=== PATIENT | female | born 1985 | race Hispanic/Latino ===

== ENCOUNTER 2017-02-07 20:59 | Outpatient (CLI) | payer MEDICAID ==
[2017-02-07 22:14] VITALS: BP 134/77
== END 2017-02-07 22:47 | disposition home or self-care (01) ==
LOC: TRG 20:59
PROVIDERS: ATTEND Obstetrics & Gynecology
DX: Z34.93 Encounter for supervision of normal pregnancy, unspecified, third trimester (principal); Z87.891 Personal history of nicotine dependence; Z3A.39 39 weeks gestation of pregnancy
CPT/HCPCS: 59025

== ENCOUNTER 2017-02-19 12:58 | Inpatient (IN) | payer MEDICAID ==
[2017-02-19] MEDS ORDERED: MINERAL OIL PO PRN (13:53)
[2017-02-19] MEDS ORDERED: ZOFRAN IV PRN ×2 (13:53→20:23)
[2017-02-19] MEDS ORDERED: SUBLIMAZE IV PRN (13:53)
[2017-02-19] MEDS ORDERED: ePHEDrine SULFATE IV PRN ×2 (13:53→16:08)
[2017-02-19] MEDS ORDERED: LACTATED RINGERS 2,000 ML ONE (13:54)
[2017-02-19] MEDS ORDERED: POLYCILLIN/NS 2 GM/100 ML 2 GM/100 ML BAG IV ONE ×2 (13:54→15:00)
[2017-02-19] MEDS ORDERED: BRETHINE SUB-Q PRN (13:57)
[2017-02-19] MEDS ORDERED: BRETHINE IVP PRN (13:58)
--- NOTE | 2017-02-19 14:00 | History and Physical Report ---
History of Present Illness Date of examination: 02/19/17 Chief complaint: Painful contractions History of present illness: 31-year-old 021 at 40+ gestation presented in active labor, she is [facility] patient. course has been unremarkable per patient, she is GBS positive. 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 denies: smoking, alcohol abuse, prescription drug abuse, IV drug use - Obstetrical History Expected Date of Delivery: 02/14/17 Actual Gestation: 40 Week(s) 5 Day(s) : 4 Para: 1 ( 9 yrs ago. was ~ 9 lbs) Medications and Allergies Allergies Allergy/AdvReac Type Severity Reaction Status Date / Time No Known Allergies Allergy Verified 02/19/17 13:10 Home Medications Medication Instructions Recorded Confirmed Last Taken Type HYDROcodone/APAP 5-325 [[place] 1 each PO Q6HR PRN #20 tablet 02/19/17 Unknown Rx 5/325] Ibuprofen [Motrin 600 MG tab] 600 mg PO Q8H PRN #30 tablet 02/19/17 Unknown Rx Multivitamin with Iron 1 each PO DAILY #30 tablet 02/19/17 Unknown Rx [Multivitamins with Iron] Vit-Fe Fumar-FA [ 1 tab PO QDAY 02/19/17 02/19/17 02/18/17 12: 00 History Vitamin] 1 Review of Systems Constitutional: no fever, no chills, no chronic pain Eyes: no blurred vision, no photophobia Cardiovascular: no chest pain, no orthopnea, no rapid/irregular heart beat, no edema, no syncope, no lightheadedness, no high blood pressure Respiratory: no excessive sputum, no shortness of breath, no dyspnea on exertion Gastrointestinal: no nausea, no vomiting Genitourinary: contractions, no vaginal bleeding, no vaginal discharge, no leakage of fluid - Vital Signs Vital signs: Vital Signs Pulse BP 91 H 133/85 02/19/17 13:18 02/19/17 13:18 Temp Pulse Resp BP Pulse Ox 98.1 F 91 H 20 133/85 02/19/17 13:26 02/19/17 13:26 02/19/17 13:26 02/19/17 13:26 - Physical Exam Abdomen: Positive: normal appearance, soft. Negative: distention, tenderness, guarding, rigidity Genitourinary (Female): Positive: normal external genitalia Uterus: Positive: enlarged (EFW ~ 3600) Adnexa: both: normal Extremities: Positive: normal - Obstetrical FHR: category 1 Cervical Dilatation: 5.5 (Per RN) Results All other labs normal. Assessment and Plan A: 31-year-old at 40+5 wks in active labor -Cat 1 tracing P: -Admit -Routine labs -Epidural when necessary -Anticipate normal vaginal delivery - Patient Problems (1) 40 weeks gestation of Current Visit: Yes Status: Acute (2) Active labor at term Current Visit: Yes Status: Acute
[2017-02-19] MEDS: LACTATED RINGERS 1,000 ML IV SCH ×3 (14:17→18:30)
[2017-02-19] MEDS ORDERED: APRESOLINE IV PRN (14:20)
--- NOTE | 2017-02-19 14:23 | Event Note ---
Date: 02/19/17 Patients BP noted to be in range of 140-150's/90's, she is asymptomatic for pre- E. Will obtain HELLP labs at this time. Will start antihypertensives for persistent BP in severe range.
[2017-02-19] MEDS: PITOCin/NS 30 UNIT/500ML 30 UNITS/500 ML BAG IV SCH ×2 (14:26→16:08)
[2017-02-19 14:37] LABS: Hematocrit 32.6 % (30.3-42.9); Hemoglobin 11.2 gm/dl (10.1-14.3); Mean Corpuscular HGB Conc 34 % (30-34); Mean Corpuscular Hemoglobin 30 pg (28-32); Mean Corpuscular Volume 87 fl (79-97); Platelet Count 245 K/mm3 (140-440); Red Blood Count 3.77 M/mm3 (3.65-5.03); White Blood Count 9.7 K/mm3 (4.5-11.0)
[2017-02-19] MEDS ORDERED: ePHEDrine SULFATE ONE (14:56)
[2017-02-19] MEDS ORDERED: PITOCin/NS 30 UNIT/500ML 30 UNITS/500 ML BAG IV SCH (15:00)
[2017-02-19] MEDS ORDERED: XYLOCAINE 2% INFILTRATI ONE (15:00)
[2017-02-19] MEDS ORDERED: PITOCin/NS 20 UNIT/1000ML DRIP 20 UNITS/1,000 ML BAG IV SCH (15:00)
[2017-02-19] MEDS ORDERED: fentaNYL-BUPIV 2 MCG/ML-0.125% 200 MCG/100 ML BAG EPIDURAL ONE (15:35)
[2017-02-19] MEDS ORDERED: NARCAN 2 MG/2 ML IV PRN (16:08)
--- NOTE | 2017-02-19 16:08 | Anesthesia Consultation ---
Anesthesia Consult and Med Hx Date of service: 02/19/17 - Airway Anesthetic Teeth Evaluation: Good ROM Head & Neck: Adequate Mental/Hyoid Distance: Adequate Intubation Access Assessment: Probably Good - Cardiac Exam Cardiac Exam: RRR - Pre-Operative Health Status ASA Pre-Surgery Classification: ASA2, Emergency Proposed Anesthetic Plan: Epidural, Spinal - Pulmonary Hx Asthma: No COPD: No Hx Pneumonia: No - Cardiovascular System Hx Hypertension: No - Central Nervous System Hx Seizures: No Hx Psychiatric Problems: No - Endocrine Hx Renal Disease: No Hx End Stage Renal Disease: No Hx Hypothyroidism: No Hx Hyperthyroidism: No - Hematic Hx Anemia: Yes Hx Sickle Cell Disease: No - Other Systems Hx Alcohol Use: No Hx Obesity: Yes
[2017-02-19] MEDS ORDERED: XYLOCAINE MPF 2% ONE ×2 (16:26)
[2017-02-19 16:39] LABS: Alanine Aminotransferase 15 units/L (7-56); Alkaline Phosphatase 151 units/L (35-129)
[2017-02-19 16:59] LABS: Bilirubin,Direct < 0.2 mg/dL (0-0.2); Bilirubin,Indirect 0.1 mg/dL
[2017-02-19] MEDS ORDERED: fentaNYL-BUPIV 2 MCG/ML-0.125% 200 MCG/100 ML BAG EPIDURAL SCH (17:00)
--- NOTE | 2017-02-19 17:08 | Progress Note ---
Assessment and Plan - Patient Problems (1) 40 weeks gestation of Current Visit: Yes Status: Acute (2) Active labor at term Current Visit: Yes Status: Acute Subjective - Subjective Date of service: 02/19/17 Interval history: Now /-2. s/p SROM Patient reports: new complaints, loss of fluid, movement normal, contractions, no vaginal bleeding Objective - Vital Signs Vital Signs: Vital Signs - 12hr 02/19/17 02/19/17 02/19/17 13:18 13:26 14:14 Temperature 98.1 F Pulse Rate 91 H 91 H 86 Respiratory 20 Rate Blood Pressure 133/85 133/85 152/91 O2 Sat by Pulse Oximetry 02/19/17 02/19/17 02/19/17 14:22 14:30 14:45 Temperature Pulse Rate 99 H 97 H Respiratory 18 Rate Blood Pressure 130/78 135/82 O2 Sat by Pulse Oximetry 02/19/17 02/19/17 02/19/17 15:01 15:16 15:45 Temperature Pulse Rate 89 94 H 96 H Respiratory Rate Blood Pressure 134/77 134/85 122/77 O2 Sat by Pulse Oximetry 02/19/17 02/19/17 02/19/17 15:52 15:53 15:55 Temperature Pulse Rate 96 H 95 H 91 H Respiratory Rate Blood Pressure 130/80 127/77 O2 Sat by Pulse 97 Oximetry 02/19/17 02/19/17 02/19/17 15:59 16:01 16:03 Temperature Pulse Rate 83 86 88 Respiratory Rate Blood Pressure 129/66 125/64 124/66 O2 Sat by Pulse 98 Oximetry 02/19/17 02/19/17 02/19/17 16:05 16:06 16:10 Temperature 97.9 F Pulse Rate 88 84 89 Respiratory 18 Rate Blood Pressure 133/70 133/70 O2 Sat by Pulse 97 Oximetry 02/19/17 02/19/17 02/19/17 16:11 16:16 16:21 Temperature Pulse Rate 87 88 89 Respiratory Rate Blood Pressure O2 Sat by Pulse 99 99 97 Oximetry 02/19/17 02/19/17 02/19/17 16:26 16:31 16:36 Temperature Pulse Rate 92 H 90 94 H Respiratory Rate Blood Pressure O2 Sat by Pulse 98 97 99 Oximetry 02/19/17 02/19/17 02/19/17 16:41 16:46 16:51 Temperature Pulse Rate 110 H 96 H 95 H Respiratory Rate Blood Pressure O2 Sat by Pulse 98 98 97 Oximetry 02/19/17 02/19/17 16:56 17:01 Temperature Pulse Rate 94 H 92 H Respiratory Rate Blood Pressure O2 Sat by Pulse 98 96 Oximetry - Exam FHR: category 1 Cervical Dilatation: 7 Cervical Effacement Percentage: 100 station: -2 - Labs Labs: Abnormal Labs 02/19/17 14:55 Alkaline Phosphatase 151 H Total Protein 6.0 L Albumin 3.0 L Laboratory Results - last 24 hr 02/19/17 02/19/17 02/19/17 14:10 14:10 14:55 WBC 9.7 RBC 3.77 Hgb 11.2 Hct 32.6 MCV 87 MCH 30 MCHC 34 RDW 14.0 Plt Count 245 Total Bilirubin 0.30 Direct Bilirubin < 0.2 Indirect Bilirubin 0.1 AST 16 ALT 15 Alkaline Phosphatase 151 H Total Protein 6.0 L Albumin 3.0 L Albumin/Globulin Ratio 1.0 Blood Type O POSITIVE Antibody Screen TNR MELVI Antibody Screen Negative
[2017-02-19 17:13] LABS: Bilirubin,Urine NEG (Negative); Blood,Urine SM (Negative); Ketones,Urine NEG (Negative); Leukocyte Esterase,Urine NEG (Negative); Mucus,Urine 1+ /HPF; Nitrite,Urine NEG (Negative); Urobilinogen,Urine < 2.0 mg/dL (<2.0)
[2017-02-19] MEDS ORDERED: POLYCILLIN/NS 1 GM/50 ML 1 GM/50 ML BAG IV SCH (17:54)
[2017-02-19] MEDS ORDERED: CYTOTEC ONE (20:03)
--- NOTE | 2017-02-19 20:22 | Procedure Note ---
OB Delivery Note - Delivery Date of Delivery: 02/19/17 Surgeon: MANJINDER OROZCO Estimated blood loss: 200cc - Vaginal Delivery presentation: vertex Delivery position: OA Delivery induction: none Delivery augmentation: pitocin Delivery monitor: external FHT, external uterine Route of delivery: Delivery placenta: spontaneous Delivery cord: 3 umbilical vessels Episiotomy: none Delivery laceration: 2nd degree Delivery repair: vicryl Anesthesia: epidural - Infant A at 1 minute: 8 at 5 minutes: 9 Gender: Female (Del @ at 19:53, infant weight was 8 lbs. 12 oz. or 3957 g )
[2017-02-19] MEDS ORDERED: NORCO 5/325 PO PRN (20:23)
[2017-02-19] MEDS ORDERED: SOLARCAINE ALOE TP PRN (20:23)
[2017-02-19] MEDS ORDERED: TYLENOL PO PRN (20:23)
[2017-02-19] MEDS ORDERED: PHENERGAN PO PRN (20:23)
[2017-02-19] MEDS ORDERED: DULCOLAX PR PRN (20:23)
[2017-02-19] MEDS ORDERED: MILK OF MAGNESIA PO PRN (20:23)
[2017-02-19] MEDS ORDERED: BENADRYL PO PRN (20:23)
[2017-02-19] MEDS ORDERED: LANSINOH TP PRN (20:23)
[2017-02-19] MEDS ORDERED: PHENERGAN PR PRN (20:23)
[2017-02-19] MEDS ORDERED: CYTOTEC PR ONE (20:23)
[2017-02-19] MEDS ORDERED: SODIUM CHLORIDE FLUSH SYRINGE 10 ML IV PRN (21:00)
[2017-02-19] MEDS ORDERED: SENOKOT S PO SCH (21:00)
[2017-02-20] MEDS: TUCKS PAD TP PRN ×2 (01:39→13:56)
[2017-02-20] MEDS: MOTRIN PO SCH ×3 (01:43→13:54)
[2017-02-20] MEDS: FEOSOL PO SCH ×2 (01:44→08:31)
[2017-02-20] MEDS: COLACE PO SCH ×2 (01:44→08:31)
[2017-02-20] MEDS ORDERED: PRENATAL VITAMIN PO SCH (10:00)
--- NOTE | 2017-02-20 10:13 | Progress Note ---
Assessment and Plan PPD# 1 s/p -Doing well P: -Routine care -Anticipate discharge in 24-48 hours - Patient Problems (1) 40 weeks gestation of Current Visit: Yes Status: Acute (2) Active labor at term Current Visit: Yes Status: Acute Subjective - Subjective Date of service: 02/20/17 Principal diagnosis: PPD# 1 Interval history: Patient seen and examined, stable doing well. No issues desires discharge home today Patient reports: appetite normal, voiding normally, pain well controlled, flatus , ambulating normally, no dizzy ambulation, no nauseated [place]: doing well Objective - Vital Signs Latest vital signs: Vital Signs Temp Pulse Resp BP Pulse Ox 02/20/17 03:15 98.4 F 79 18 126/61 02/19/17 23:30 98.5 F 100 H 20 139/64 02/19/17 21:15 96 H 124/64 02/19/17 21:12 112 H 146/87 02/19/17 20:56 93 H 130/60 02/19/17 20:42 108 H 155/116 02/19/17 20:26 110 H 133/64 02/19/17 19:06 103 H 121/67 02/19/17 18:41 97 H 97 02/19/17 18:40 97.9 F 97 H 18 131/80 97 02/19/17 18:36 93 H 98 02/19/17 18:31 91 H 98 02/19/17 18:26 92 H 99 02/19/17 18:23 91 H 131/80 02/19/17 18:21 97 H 99 02/19/17 18:16 94 H 97 02/19/17 18:11 85 99 02/19/17 18:06 83 97 02/19/17 18:01 84 98 02/19/17 17:56 87 98 02/19/17 17:51 88 98 02/19/17 17:46 82 97 02/19/17 17:41 88 98 02/19/17 17:36 86 98 02/19/17 17:31 87 97 02/19/17 17:26 86 98 02/19/17 17:21 93 H 98 02/19/17 17:16 86 97 02/19/17 17:11 78 97 02/19/17 17:06 86 100 02/19/17 17:01 92 H 96 02/19/17 16:56 94 H 98 02/19/17 16:51 95 H 97 02/19/17 16:46 96 H 98 02/19/17 16:41 110 H 98 02/19/17 16:36 94 H 99 02/19/17 16:31 90 97 02/19/17 16:26 92 H 98 02/19/17 16:21 89 97 02/19/17 16:16 88 99 02/19/17 16:11 87 99 02/19/17 16:10 97.9 F 89 18 133/70 02/19/17 16:06 84 97 02/19/17 16:05 88 133/70 02/19/17 16:03 88 124/66 02/19/17 16:01 86 125/64 98 02/19/17 15:59 83 129/66 02/19/17 15:55 91 H 127/77 02/19/17 15:53 95 H 130/80 02/19/17 15:52 96 H 97 02/19/17 15:45 96 H 122/77 02/19/17 15:16 94 H 134/85 02/19/17 15:01 89 134/77 02/19/17 14:45 97 H 135/82 02/19/17 14:30 99 H 130/78 02/19/17 14:22 18 02/19/17 14:14 86 152/91 02/19/17 13:26 98.1 F 91 H 20 133/85 02/19/17 13:18 91 H 133/85 Intake and Output 02/19/17 02/20/17 02/20/17 22:59 06:59 14:59 Intake Total 1000 400 Output Total 700 1400 Balance 300 -1000 Intake: IV 1000 Lactated Ringers 1,000 ml 1000 @ 125 mls/hr IV DIRECT [facility] Rx#:[id number] Intake, Free Water 400 Output: Urine 700 1400 Void 700 1400 Other: Total, Output Amount 700 900 Estimated Blood Loss 200 - Exam Abdomen: Present: normal appearance, soft. Absent: distention, tenderness, guarding, rigidity Uterus: Present: fundal height below umbilicus. Absent: tenderness Extremities: Present: normal - Labs Labs: Abnormal lab results 02/19/17 Range/Units 14:55 Alkaline Phosphatase 151 H (35-129) units/L Total Protein 6.0 L (6.3-8.2) g/dL Albumin 3.0 L (3.9-5) g/dL
--- NOTE | 2017-02-20 10:17 | Discharge Summary ---
Providers - Providers Date of Admission: 02/19/17 12:59 Date of discharge: 02/21/17 Attending physician: MANJINDER OROZCO Primary care physician: MANJINDER OROZCO Hospitalization Reason for admission: active labor Delivery: Episiotomy: none Laceration: 2nd degree Incision: dry, intact Other procedures: none complications: none Discharge diagnosis: IUP at term delivered [place] baby: female Hospital course: uncomplicated hospital course Condition at discharge: Good Disposition: DC-01 TO HOME OR SELFCARE - Discharge Diagnoses (1) (normal spontaneous vaginal delivery) Status: Acute (2) 40 weeks gestation of Status: Acute (3) Active labor at term Status: Acute Plan - Discharge Medications Prescriptions: HYDROcodone/APAP 5-325 [[place] 5/325] 1 each PO Q6HR PRN #20 tablet PRN Reason: Pain Ibuprofen [Motrin 600 MG tab] 600 mg PO Q8H PRN #30 tablet PRN Reason: Pain Multivitamin with Iron [Multivitamins with Iron] 1 each PO DAILY #30 tablet - Provider Discharge Summary Activity: no sex for 6 weeks, no heavy lifting 4 weeks, no strenuous exercise Diet: routine Additional instructions: [] Smoking cessation referral if applicable(refer to patient education folder for contact #) [] Refer to [facility] Booklet Call your doctor immediately for: * Fever > 100.5 * Heavy vaginal bleeding ( >1 pad per hour) * Severe persistent headache * Shortness of breath * Reddened, hot, painful area to leg or breast * Drainage or odor from incision. * Keep incision clean and dry at all times and follow doctor's instructions regarding bathing/showering - Follow up plan Follow up: MANJINDER OROZCO MD [Primary Care Provider] - 6 Weeks
[2017-02-20 11:04] LABS: Hematocrit 30.5 % (30.3-42.9); Hemoglobin 10.3 gm/dl (10.1-14.3)
[2017-02-20 18:06] VITALS: BP 124/74
== END 2017-02-20 20:39 | disposition home or self-care (01) | DRG 774 ==
LOC: TRG 12:58 → LD 12:59 → OB 22:35
PROVIDERS: ADMIT Obstetrics & Gynecology Gynecology; ATTEND Obstetrics & Gynecology Gynecology
PROC: 10E0XZZ Delivery of Products of Conception, External Approach (ICD-10-PCS; principal; 2017-02-19)
PROC: 0KQM0ZZ Repair Perineum Muscle, Open Approach (ICD-10-PCS; 2017-02-19)
PROC: 3E0S3CZ (ICD-10-PCS; 2017-02-19)
PROC: 00HU33Z Insertion of Infusion Device into Spinal Canal, Percutaneous Approach (ICD-10-PCS; 2017-02-19)
DX: O99.824 Streptococcus B carrier state complicating childbirth (principal); O14.94 Unspecified pre-eclampsia, complicating childbirth; O70.1 Second degree perineal laceration during delivery; O99.214 Obesity complicating childbirth; E66.9 Obesity, unspecified; Z3A.40 40 weeks gestation of pregnancy; Z68.45 Body mass index [BMI] 70 or greater, adult; Z37.0 Single live birth
CPT/HCPCS: 36415; 80074; 81001; 85014; 85018; 85027; 86592; 86850; 86900; 86901; J0290; J2590; J3010; J7120